=== PATIENT | female | born 2000 | race Caucasian/White ===

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

== ENCOUNTER 2022-02-08 16:58 | Emergency (ER) | payer OTHER, SELFPAY ==
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
[2022-02-08 17:26] VITALS: BP 146/110; PULSE 106; RESP 16; TEMP 36.6; O2SAT 99
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
--- NOTE | 2022-02-08 17:40 | PC.NURSE ---
Radiology at bedside to obtain xray.
== END 2022-02-08 18:44 | disposition home or self-care (01) ==
PROVIDERS: Emergency Provider Emergency Medicine; PCP Internal Medicine
DX: S60.222A Contusion of left hand, initial encounter (principal); W22.8XXA Striking against or struck by other objects, initial encounter
CPT/HCPCS: 73130; 99283

== ENCOUNTER 2022-03-05 14:58 | Emergency (ER) | payer OTHER, SELFPAY ==
[2022-03-05] VITALS (9 sets, daily range): BP systolic 105–150; BP diastolic 62–94; PULSE 84–90; RESP 16–18; TEMP 36.4; O2SAT 98–100
--- NOTE | ~2022-03-05 | CT_ITS ---
EXAMINATION: CT abdomen pelvis w con DATE: 03/05/2022 17:46 INDICATION: abd pain, vomiting TECHNIQUE: Computed tomography (CT) of the abdomen and pelvis was performed with 100 mL Omnipaque-350 intravenous contrast. Automated exposure control and iterative reconstruction technique were employe d. The dose-length product was 1563.25 mGy-cm. COMPARISON: None. FINDINGS: Lower thorax: Unremarkable Liver: Normal. Biliary/Gallbladder: Gallbladder is normal. No bile duct dilation. Pancreas: No mass or duct dilation. Spleen: Normal. Adrenals:No mass. Kidneys: No mass, stone, or hydronephrosis. GI tract: No small or large bowel dilation. Normal appendix. Mesentery/Peritoneum: No ascites, mass, or free air. Retroperitoneum: No mass. Pelvis: Pelvic organs are within normal limits. Soft Tissues: Soft tissues and body wall unremarkable. Small fat-containing umbilical hernia. Bones: No acute osseous finding. IMPRESSION: No acute abdominopelvic process detected. Reviewed, dictated and finalized at location K.
--- NOTE | 2022-03-05 15:17 | ED.NAVMDI ---
HPI - Nausea/Vomiting/Diarrhea General Chief complaint: Nausea/Vomiting/Diarrhea Stated complaint: ST Time Seen by Provider: 03/05/22 15:06 Source: patient Mode of arrival: ambulatory Limitations: no limitations History of Present Illness HPI Narrative: This is a 21-year-old female that presents to the emergency department for cold symptoms ongoing over the last couple of days. Reports sore throat, congestion, cough. Also reports nausea and vomiting. Reports she is currently . She is unsure how far along she is. She is scheduled for an ultrasound in a week. Denies fever, abdominal pain, or vaginal bleeding. Related Data Home Medications Medication Instructions Recorded Confirmed No Home Medications 12/04/21 12/04/21 Allergies Allergy/AdvReac Type Severity Reaction Status Date / Time Penicillins Allergy Unknown Tongue Verified 12/04/21 16:01 swelling Fish Containing Products Allergy Nausea and Verified 12/04/21 16:01 Vomiting Review of Systems Review of Systems: CONSTITUTIONAL: Denies fever ENT: Reports rhinorrhea, congestion, sore throat RESPIRATORY: Reports cough. Denies dyspnea. GASTROINTESTINAL: Reports nausea and vomiting. Denies abdominal pain GENITOURINARY: Denies dysuria All systems reviewed & are unremarkable except as noted in HPI and below PMFSH Past Medical History Medical History No pertinent past medical history Surgical History Surgical History No pertinent past surgical history Family History Family History Mother Diabetes mellitus Carcinoma of colon Father Asthma Carcinoma of colon, Onset Age: 40 Social History Social History Smoking status: Never smoker Exam Narrative: GENERAL: Well-appearing, well-nourished, and in no acute distress. HEAD: Normocephalic, atraumatic. EYES: EOMI. ENT: Nares clear, no rhinorrhea or epistaxis. Mucous membranes moist. Oropharynx without tonsillar hypertrophy exudate or other lesions. Bilateral TMs pearly valentine non-bulging NECK: Supple. No adenopathy or masses. CHEST: Clear to auscultation. No respiratory distress. No wheezes rales or rhonchi HEART: Regular rate and rhythm. No murmur heard. Normal peripheral pulses. ABDOMEN: Soft, nontender, nondistended, normal active bowel sounds. EXTREMITIES: Normal range of motion. No edema. SKIN: Warm, dry, no rash. NEURO: No focal deficits. Alert and oriented x3. PSYCH: Normal mood and affect Course Vital Signs Vital signs: Vital Signs Temperature 97.5 F L 03/05/22 15:00 Pulse Rate 84 03/05/22 15:00 Respiratory Rate 16 03/05/22 15:00 Blood Pressure 150/94 H 03/05/22 15:00 Pulse Oximetry 100 03/05/22 15:00 Oxygen Delivery Room Air 03/05/22 15:00 Temperature 97.5 F L 03/05/22 15:00 Pulse Rate 90 03/05/22 15:22 Respiratory Rate 18 03/05/22 15:22 Blood Pressure 105/62 03/05/22 16:16 Pulse Oximetry 100 03/05/22 16:36 Oxygen Delivery Room Air 03/05/22 15:00 MDM - Nausea/Vomiting/Diarrhea MDM Narrative Medical decision making narrative: Patient presents to the emergency department for cold symptoms present over the last couple of days. Also reporting abdominal discomfort, nausea and vomiting. Patient is afebrile and nontoxic-appearing. Her vitals are stable. CBC without concerning findings. Metabolic panel with mild transaminitis. Lipase is negative. UA without evidence of infection. Patient had not had a menstrual cycle in the last 5 months. Reportedly had a positive home test. Her urine is negative here. Quantitative beta-hCG is also negative. Flu and COVID swabs are negative. CT scan of the abdomen and pelvis without concerning findings. Patient was updated on case findings. Instructed on continued
[2022-03-05 15:32] LABS: Basophils Percent Auto 0.5 % (0.2-1.2); Eosinophils Absolute Auto 0.1 K/mm3 (0-0.3); Eosinophils Percent Auto 1.6 % (0-4.4); Hematocrit 45.1 % (37.0-47.0); Hemoglobin 14.8 g/dL (12.0-15.0); Immature Granulocyte Absolute 0.02 K/mm3 (0.00-0.031); Immature Granulocyte Percent A 0.2 % (0-0.5); Lymphocytes Absolute Auto 2.86 K/mm3 (0.9-3.2); Lymphocytes Percent Auto 35.1 % (18.3-44.2); Mean Corpuscular HGB Conc 32.8 g/dl (32-36); Mean Corpuscular Hemoglobin 27.3 pg (26-34); Mean Corpuscular Volume 83.2 fl (80-100); Mean Platelet Volume 10.1 fl (7.4-10.4); Monocytes Absolute Auto 0.8 K/mm3 (0.1-0.6); Monocytes Percent Auto 9.2 % (2.6-8.5); Neutrophils Absolute Auto 4.3 K/mm3 (1.3-6.7); Neutrophils Percent Auto 53.4 % (45.5-73.1); Platelet Count Result 338 k/mm3 (150-375); Red Blood Count 5.42 M/mm3 (4.2-5.4); Red Cell Distribution Width 12.7 % (11.5-14.5); White Blood Count 8.1 K/mm3 (4.5-10.0)
[2022-03-05 15:33] LABS: Appearance Urine Slightly Cloudy (Clear); Bilirubin Urine Negative (Negative); Blood Urine Negative (Negative); Color Urine Yellow (Yellow); Glucose Urine UA Negative (Negative); Ketones Urine Negative (Negative); Leukocyte Esterase Ur Trace LEU/UL (Negative); Nitrate Urine Negative (Negative); Protein Urine Negative (Negative); Specific Grav Ur 1.025 (1.001-1.035); Urobilinogen Urine 0.2 mg/dL (<2.0)
[2022-03-05 15:36] LABS: Bacteria Urine Trace /hpf; Mucus Urine Rare /lpf; Squamous Epithelial Cell Urine Many /hpf (Few); WBC Urine 0-3 /hpf
[2022-03-05 15:37] LABS: Add Urine Microscopic? YES
[2022-03-05 15:39] LABS: Alanine Aminotransferase 58 U/L (6-35); Albumin Level 4.4 g/dL (3.7-5.6); Alkaline Phosphatase 98 U/L (45-116); Anion Gap 10 mmol/L (8-16); Aspartate Amino Transferase 41 U/L (14-36); Bilirubin,Total 0.4 mg/dL (0.2-1.3); Blood Urea Nitrogen 11 mg/dL (8-21); Calcium 9.1 mg/dL (8.9-10.7); Carbon Dioxide 26 mmol/L (22-30); Chloride 100 mmol/L (98-107); Estimated CRCL calculation 168 ml/min; Estimated Glomerular Filt Rate > 60; Glucose 79 mg/dL (65-110); Lipase 142 U/L (23-300); Potassium 4.1 mmol/L (3.4-5.0); Sodium 136 mmol/L (134-143)
[2022-03-05] MEDS: ONDANSETRON INJ 4 MG/2 ML VIAL IV PUSH (15:39)
[2022-03-05] MEDS: SODIUM CHLORIDE 0.9% IV 1,000 ML 999 ML IV CONT (15:39)
[2022-03-05 16:08] LABS: Influenza A QL RT-PCR Negative (Negative); Influenza B QL RT-PCR Negative (Negative); SARS-CoV-2 RNA PCR Negative
[2022-03-05 16:14] LABS: Beta HCG Quantitative < 2.39 mIU/ML
== END 2022-03-05 18:13 | disposition home or self-care (01) ==
PROVIDERS: Physician Assistant; Emergency Provider Family Medicine; PCP Nurse Practitioner Family
DX: B34.9 Viral infection, unspecified (principal)
CPT/HCPCS: 36415; 74177; 80053; 81001; 81025; 83690; 84702; 85025; 87502; 96361; 96365; 99284; C9803; J0131; J2405; J7030; Q9967; U0003; U0005

== ENCOUNTER 2022-04-27 09:52 | Emergency (ER) | payer OTHER, SELFPAY ==
--- NOTE | ~2022-04-27 | XR_ITS ---
XR ankle RT min 3V 04/27/2022 10:18 INDICATION: Status post fall. Ankle pain. PROCEDURE: 4 views right ankle COMPARISON: 11/05/2021 FINDINGS: Fracture, dislocation or subluxation is not identified. Ankle mortise intact. Stable osteoa rthritis originating from the medial malleolus. The soft tissues appear within normal limits. No for eign bodies are identified. IMPRESSION: 1: NO ACUTE BONE OR JOINT ABNORMALITY IDENTIFIED. Reviewed, dictated and finalized at location A.
[2022-04-27 09:57] VITALS: BP 137/97; PULSE 86; RESP 18; TEMP 36.8; O2SAT 96
--- NOTE | 2022-04-27 10:01 | PC.NURSE ---
Patient states she fell yesterday in the rain and again this morning twisting her right ankle. no deformity noted. some minor swelling
--- NOTE | 2022-04-27 10:07 | ED.FALL ---
HPI - Fall General Chief Complaint: Fall Stated Complaint: fall with ankle pain Time Seen by Provider: 04/27/22 09:58 History of Present Illness HPI Narrative: 21-year-old female here for evaluation of right ankle pain after a fall. Patient states that she accidentally tripped and fell last evening, landing with her foot in inversion. She had another fall today and decided to come in after her pain worsened. Patient states that time she tripped on an object, denies preceding symptoms including lightheadedness, dizziness, weakness. Reports the pain is most severe in the lateral aspect of her right ankle. She has taken several steps patient states it is painful. Denies any numbness or tingling in her foot. Has attempted Tylenol without significant relief of her pain. Related Data Allergies Allergy/AdvReac Type Severity Reaction Status Date / Time azithromycin Allergy Severe Swelling Verified 04/27/22 09:53 [From Zithromax Z-Donell] of Lip/Tongue/Throat Penicillins Allergy Unknown Tongue Verified 04/27/22 09:53 swelling Fish Containing Products Allergy Nausea and Verified 04/27/22 09:53 Vomiting Review of Systems Review of Systems: Gen.: Denies fevers or chills Eyes: Denies eye pain or visual change ENT: Denies congestion Respiratory: Denies shortness of breath or cough CV: Denies chest pain or palpitations GI: Denies abdominal pain nausea, emesis or diarrhea : denies burning, urgency, frequency or hematuria Musculoskeletal: Reports right ankle pain. denies back pain or muscle pain Neuro: Denies numbness, tingling, weakness or focal weakness Skin: Denies rash Except as documented, all other systems reviewed and negative [facility] Past Medical History Medical History Morbid obesity with BMI of 45.0-49.9, adult No pertinent past medical history Surgical History Surgical History No pertinent past surgical history Family History Family History Mother Diabetes mellitus Carcinoma of colon Father Asthma Carcinoma of colon, Onset Age: 40 Social History Social History (Updated 03/15/22 @ 10:35 by Fawn Denson MA) Smoking status: Never smoker Alcohol intake: never Substance use: never Substance use type: does not use Gender identity (if verbalized by the patient): Female Sexual Orientation (if Verbalized by the Patient): Straight or Heterosexual Exam Narrative: APPEARANCE: Well appearing, no pain in distress, well-nourished. Head: Normocephalic and atraumatic. EYES: PERRLA/EOMI, conjunctivae clear NOSE: No nasal drainage EARS: External ear normal in appearance THROAT: Oropharynx is clear. Mucous membranes are moist. NECK: Supple. No adenopathy, no masses. RESPIRATORY: Airway patent, respirations nonlabored. Clear to auscultation bilaterally, no rales, rhonchi, wheezing. CARDIOVASCULAR: Doppler signals heard to bilateral dp/pt pulses. Brisk capillary refill. Regular rate and rhythm without murmurs, rubs, or gallops. ABDOMINAL: Normoactive bowel sounds. Soft, nontender, nondistended. No rebound tenderness or guarding. MUSCULOSKELETAL: achilles tendon intact, rivera test negative. Tender to palpation over the lateral aspect of the right lateral malleolus. FROM in right foot and ankle, notes pain with eversion. Sensation intact throughout foot. trace non-pitting edema to BLE. NEURO: Normal speech. No focal neurologic deficits. SKIN: Skin is warm and dry. No rashes. PSYCHIATRIC: Normal affect/mood. Course Vital Signs Vital signs: Vital Signs Temperature 98.2 F 04/27/22 09:57 Pulse Rate 86 04/27/22 09:57 Respiratory Rate 18 04/27/22 09:57 Blood Pressure 137/97 H 04/27/22 09:57 Pulse Oximetry 96 04/27/22 09:57 Temperature 98.2 F 04/27/22 09:57 Pulse Rate 86 04/27/22 09:57 Respirat
[2022-04-27] MEDS: IBUPROFEN 600 MG TABLET PO (10:11)
== END 2022-04-27 10:44 | disposition home or self-care (01) ==
PROVIDERS: Emergency Provider Emergency Medicine; PCP Nurse Practitioner Family
DX: S93.401A Sprain of unspecified ligament of right ankle, initial encounter (principal); E66.01 Morbid (severe) obesity due to excess calories; W01.0XXA Fall on same level from slipping, tripping and stumbling without subsequent striking against object, initial encounter; X50.9XXA Other and unspecified overexertion or strenuous movements or postures, initial encounter
CPT/HCPCS: 73610; 99283; A9270

== ENCOUNTER 2022-05-04 10:17 | Emergency (ER) | payer OTHER, SELFPAY ==
--- NOTE | ~2022-05-04 | XR_ITS ---
EXAMINATION: XR chest 1V portable DATE: 05/04/2022 10:56 INDICATION: Cough. Shortness of breath. Right-sided chest pain. TECHNIQUE: A single frontal view of the chest was obtained. COMPARISON: CT abdomen and pelvis 03/05/2022 FINDINGS: The chest demonstrates clear lungs without pneumonia, pleural effusion, or pneumothorax. Th e heart size is normal. IMPRESSION: 1. No acute cardiopulmonary disease. Reviewed, dictated and finalized at location A.
[2022-05-04 10:25] VITALS: BP 147/93; PULSE 75; RESP 16; TEMP 36.8; O2SAT 100
--- NOTE | 2022-05-04 10:49 | ED.GENADULT ---
HPI - General Adult General Chief complaint: Chest Pain Stated complaint: difficulty breathing, right side pain, diarrhea Time Seen by Provider: 05/04/22 10:29 History of Present Illness HPI narrative: 21-year-old female presents the emergency room with multiple complaints. Patient states that she has been experiencing sinus congestion postnasal drip and a productive cough for 3 days. Patient states that she also has sharp inspiratory chest pain. Patient is also complaining of right upper abdominal pain that is worse when she takes a deep breath. Patient denies fevers, nausea vomiting, diarrhea or constipation. Patient denies dysuria Related Data Allergies Allergy/AdvReac Type Severity Reaction Status Date / Time azithromycin Allergy Severe Swelling Verified 04/27/22 09:53 [From Zithromax Z-Donell] of Lip/Tongue/Throat Penicillins Allergy Unknown Tongue Verified 04/27/22 09:53 swelling Fish Containing Products Allergy Nausea and Verified 04/27/22 09:53 Vomiting Review of Systems Review of Systems: CONSTITUTIONAL: Denies fever, chills, or sweats. EYES: Denies visual changes, redness, or discharge. ENT: Reports rhinorrhea, congestion CARDIOVASCULAR: Denies chest pain, palpitations, or edema. RESPIRATORY: Reports cough or dyspnea. GASTROINTESTINAL: Denies abdominal pain, nausea, vomiting, or diarrhea. GENITOURINARY: Denies dysuria or hematuria. SKIN: Denies rash or itching. MUSCULOSKELETAL: Denies back pain, joint pain, or myalgia. NEUROLOGIC: Denies headache, numbness, dizziness, or weakness. PSYCHIATRIC: Denies anxiety or depression. [facility] Past Medical History Medical History Morbid obesity with BMI of 45.0-49.9, adult No pertinent past medical history Surgical History Surgical History No pertinent past surgical history Family History Family History Mother Diabetes mellitus Carcinoma of colon Father Asthma Carcinoma of colon, Onset Age: 40 Social History Social History Smoking status: Never smoker Alcohol intake: never Substance use: never Substance use type: does not use Gender identity (if verbalized by the patient): Female Sexual Orientation (if Verbalized by the Patient): Straight or Heterosexual Exam Narrative: GENERAL: Well-appearing, well-nourished, no physical limitations, and in no acute distress. HEAD: Normocephalic, atraumatic. EYES: Conjunctivae normal, PERRLA and EOMI. ENT: External nose normal, Nares clear, no rhinorrhea or epistaxis. Mucous membranes moist. Oropharynx without tonsillar hypertrophy exudate or other lesions. External ears normal, bilateral TMs normal bilaterally NECK: Supple. No adenopathy or masses. CHEST: Clear to auscultation. No respiratory distress. No wheezes rales or rhonchi. No tenderness. HEART: Regular rate and rhythm. No murmur heard. Normal peripheral pulses. ABDOMEN: Soft, nontender, nondistended, normal active bowel sounds. EXTREMITIES: Normal range of motion. No edema. No clubbing or cyanosis SKIN: Warm, dry, no rash. No noted wounds NEURO: No focal deficits. Alert and oriented x3. MAEW. CN's II-XI intact bilaterally, normal gait PSYCH: Cooperative. Normal mood and affect. Course Vital Signs Vital signs: Vital Signs Temperature 36.8 C 05/04/22 10:25 Pulse Rate 75 05/04/22 10:25 Respiratory Rate 16 05/04/22 10:25 Blood Pressure 147/93 H 05/04/22 10:25 Pulse Oximetry 100 05/04/22 10:25 Oxygen Delivery Room Air 05/04/22 10:25 Temperature 36.8 C 05/04/22 10:25 Pulse Rate 75 05/04/22 10:25 Respiratory Rate 16 05/04/22 10:25 Blood Pressure 147/93 H 05/04/22 10:25 Pulse Oximetry 100 05/04/22 10:25 Oxygen Delivery Room Air 05/04/22 10:35 Medical Decision Gilberto
[2022-05-04 11:04] LABS: Appearance Urine Clear (Clear); Bilirubin Urine Negative (Negative); Blood Urine Trace-intact (Negative); Color Urine Yellow (Yellow); Glucose Urine UA Negative (Negative); Ketones Urine Negative (Negative); Leukocyte Esterase Ur Negative LEU/UL (Negative); Nitrate Urine Negative (Negative); Protein Urine Trace mg/dL (Negative); pH Urine 8.5 (5.0-9.0)
[2022-05-04 11:13] LABS: Mucus Urine Rare /lpf; RBC Urine 0-2 /hpf (0-2); Squamous Epithelial Cell Urine Many /hpf (Few); WBC Urine 0-3 /hpf
[2022-05-04 11:15] LABS: Add Urine Microscopic? YES
[2022-05-04 11:31] LABS: Influenza A QL RT-PCR Negative (Negative); Influenza B QL RT-PCR Negative (Negative); SARS-CoV-2 RNA PCR Negative
== END 2022-05-04 12:00 | disposition home or self-care (01) ==
PROVIDERS: Emergency Provider Nurse Practitioner Family; PCP Nurse Practitioner Family
DX: R09.1 Pleurisy (principal); E66.01 Morbid (severe) obesity due to excess calories; J06.9 Acute upper respiratory infection, unspecified
CPT/HCPCS: 71045; 81001; 81025; 87502; 96372; 99283; C9803; J1100; U0003; U0005

== ENCOUNTER 2022-07-03 00:02 | Emergency (ER) | payer OTHER, SELFPAY ==
--- NOTE | ~2022-07-03 | XR_ITS ---
EXAMINATION: XR chest 2V DATE: 07/03/2022 02:01 INDICATION: Cough and shortness of breath. TECHNIQUE: Frontal and lateral views of the chest were obtained. COMPARISON: Chest single view 05/04/2022, CT abdomen and pelvis 03/05/2022 FINDINGS: The chest demonstrates clear lungs without pneumonia, pleural effusion, or pneumothorax. Th e heart size is normal. IMPRESSION: 1. No acute cardiopulmonary disease. Reviewed, dictated and finalized at location A. OLATE DIPPER
[2022-07-03 00:20] VITALS: BP 139/99; PULSE 133; RESP 24; TEMP 37.1; O2SAT 99
--- NOTE | 2022-07-03 00:41 | ED.URI ---
HPI - URI/Sore Throat General Chief Complaint: Upper Respiratory Infection Stated Complaint: Cough, Chest Heavy Time Seen by Provider: 07/03/22 00:06 Related Data Allergies Allergy/AdvReac Type Severity Reaction Status Date / Time azithromycin Allergy Severe Swelling Verified 06/25/22 10:57 [From Zithromax Z-Donell] of Lip/Tongue/Throat Penicillins Allergy Unknown Tongue Verified 06/25/22 10:57 swelling Fish Containing Products Allergy Nausea and Verified 06/25/22 10:57 Vomiting PMFSH Past Medical History Medical History Morbid obesity with BMI of 45.0-49.9, adult No pertinent past medical history Surgical History Surgical History No pertinent past surgical history Family History Family History Mother Diabetes mellitus Carcinoma of colon Father Asthma Carcinoma of colon, Onset Age: 40 Social History Social History Smoking status: Never smoker Alcohol intake: never Substance use: never Substance use type: does not use Gender identity (if verbalized by the patient): Female Sexual Orientation (if Verbalized by the Patient): Straight or Heterosexual Course Vital Signs Vital signs: Vital Signs Temperature 37.1 C 07/03/22 00:20 Pulse Rate 133 H 07/03/22 00:20 Respiratory Rate 24 H 07/03/22 00:20 Blood Pressure 139/99 H 07/03/22 00:20 Pulse Oximetry 99 07/03/22 00:20 Oxygen Delivery Room Air 07/03/22 00:20 Temperature 37.1 C 07/03/22 00:20 Pulse Rate 111 H 07/03/22 01:41 Respiratory Rate 16 07/03/22 01:41 Blood Pressure 122/74 07/03/22 01:34 Pulse Oximetry 100 07/03/22 01:34 Oxygen Delivery Room Air 07/03/22 00:27 MDM - URI/Sore Throat Lab Data Labs: Lab Results 07/03/22 Range/Units 00:28 Influenza A (RT-PCR) Positive (Negative) Influenza B (RT-PCR) Negative (Negative) RSV (RT-PCR) Negative (Negative) SARS-CoV-2 RNA (RT-PCR) Negative Imaging Data My impression: CXR: NAD Discharge Plan Discharge Clinical Impression: Influenza A Patient Disposition: Home, Self-Care Condition: Stable Instructions: Antibiotic Form, Influenza (ED) Additional Instructions: Alternate Tylenol and ibuprofen every 4 hours for body aches and fevers. May take an inhaler for shortness of breath cough [id number] Mucinex DM for your cough. Stay hydrated. Prescriptions: New albuterol sulfate [Ventolin HFA] 90 mcg/actuation HFA aerosol inhaler 1 inh inhalation QID Qty: 8.5 0RF Xofluza 80 mg tablet 80 mg PO ONCE Qty: 1 0RF Rx Instructions: as a single dose No Action drospirenone-ethinyl estradiol 3-0.03 mg tablet 1 tablet PO DAILY Qty: 84 1RF Follow-up/Referrals: Kyaw,ROLANDO Álvarez [Primary Care Provider] - Stand Alone Forms: Work/School Release IP Time of Disposition: 01:51
[2022-07-03 01:31] LABS: Influenza A QL RT-PCR Positive (Negative); Influenza B QL RT-PCR Negative (Negative); RSV RNA, RT-PCR Negative (Negative); SARS-CoV-2 RNA PCR Negative
[2022-07-03] MEDS: methylPREDNISolone SOD SUCC 125 MG VIAL IV PUSH (01:31)
[2022-07-03] MEDS: SODIUM CHLORIDE 0.9% IV 1,000 ML 999 ML IV CONT (01:31)
[2022-07-03] MEDS: IPRATROPIUM BR 0.02% INH SOLN 0.5 MG/2.5 ML VIAL INHALATION (01:33)
[2022-07-03] MEDS: ALBUTEROL SULFATE NEB 2.5 MG/3 ML INH INHALATION (01:33)
[2022-07-03 01:34] VITALS: BP 122/74; PULSE 110; PULSE 113; RESP 19; RESP 22; O2SAT 100
[2022-07-03 01:41] VITALS: PULSE 111; RESP 16
[2022-07-03 02:26] VITALS: BP 132/88; PULSE 111; RESP 16; TEMP 37; O2SAT 98
== END 2022-07-03 02:32 | disposition home or self-care (01) ==
PROVIDERS: Emergency Provider Nurse Practitioner Family; PCP Nurse Practitioner Family
DX: J10.1 Influenza due to other identified influenza virus with other respiratory manifestations (principal); Z20.822 Contact with and (suspected) exposure to COVID-19; E66.01 Morbid (severe) obesity due to excess calories; Z68.43 Body mass index [BMI] 50.0-59.9, adult
CPT/HCPCS: 71046; 87637; 94640; 96361; 96374; 99284; J2930; J7030

== ENCOUNTER 2022-09-22 08:37 | Emergency (ER) | payer OTHER, SELFPAY ==
[2022-09-22 08:53] VITALS: BP 129/80; PULSE 92; RESP 18; TEMP 36.8; O2SAT 100
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
[2022-09-22 10:17] VITALS: BP 132/82; PULSE 76; RESP 16; O2SAT 100
[2022-09-22 10:19] VITALS: BP 136/74; PULSE 84; RESP 16; O2SAT 100
[2022-09-22 10:20] VITALS: BP 134/76; PULSE 84; RESP 16; O2SAT 100
== END 2022-09-22 10:22 | disposition home or self-care (01) ==
PROVIDERS: Emergency Provider Physician Assistant; PCP Nurse Practitioner Family
DX: O9A.211 Injury, poisoning and certain other consequences of external causes complicating pregnancy, first trimester (principal); S39.012A Strain of muscle, fascia and tendon of lower back, initial encounter; O99.211 Obesity complicating pregnancy, first trimester; E66.01 Morbid (severe) obesity due to excess calories; Z3A.09 9 weeks gestation of pregnancy; X58.XXXA Exposure to other specified factors, initial encounter; Y93.83 Activity, rough housing and horseplay
CPT/HCPCS: 99281

== ENCOUNTER 2022-10-02 10:51 | Emergency (ER) | payer OTHER, SELFPAY ==
[2022-10-02 11:49] VITALS: BP 166/97; PULSE 100; RESP 20; TEMP 36.8; O2SAT 100
--- NOTE | 2022-10-02 12:39 | PC.NURSE ---
PT CAME UP TO DESK AND STATES BEGINNING TO HAVE STUFF COMING OUT SHE WANTS TO GO HOME AND SEE IF HER WOMANLY STUFF STARTS HAPPENING AND WILL RETURN OR TALK TO HER DOLL WIG [employer]KER NEEDED. ADVISED TO STAY BUT PT DECLINES. AMBULATORY FROM THE ED WITH A STEADY GAIT.
== END 2022-10-02 13:13 | disposition left against medical advice (07) ==
DX: R10.9 Unspecified abdominal pain (principal)
CPT/HCPCS: 99199